=== PATIENT | female | born 1940 | race African-American/Black ===

== ENCOUNTER → 2018-10-28 | Outpatient (CLI) | payer MEDICARE, OTHER ==
--- NOTE | 2018-10-28 14:20 | RADIOLOGY REPORT (SQ) ---
EXAM DESCRIPTION: CT ABD/PELVIS ORAL ONLY COMPLETED DATE/TIME: 10/28/2018 1:18 pm REASON FOR STUDY: ABD PAIN (R10.9), DIARRHEA (R19.7) R19.7 DIARRHEA, UNSPECIFIED R10.9 UNSPECIFIED ABDOMINAL PAIN COMPARISON: None. TECHNIQUE: CT scan of the abdomen and pelvis performed without intravenous contrast. Oral contrast was given. Images reviewed with lung, soft tissue, and bone windows. Reconstructed coronal and sagit kerline MPR images reviewed. All images stored on PACS. All CT scanners at this facility use dose modulation, iterative reconstruction, and/or weight based d osing when appropriate to reduce radiation dose to as low as reasonably achievable (ALARA). [facility]: Dose Right [facility]: CareDose [facility]: Dose Right [facility]: Teradose 4D [facility]: [employer] RADIATION DOSE: CT Rad equipment meets quality standard of care and radiation dose reduction techniq ues were employed. CTDIvol: 5.7 mGy. DLP: 273 mGy-cm.mGy. LIMITATIONS: None. FINDINGS: LOWER CHEST: No significant findings. No nodules or infiltrates. NON-CONTRASTED LIVER, SPLEEN, ADRENALS: Evaluation limited by lack of IV contrast. No identified sign ificant masses. PANCREAS: No masses. No peripancreatic inflammatory changes. GALLBLADDER: Surgically absent. RIGHT KIDNEY AND URETER: No suspicious masses. Assessment limited by lack of IV contrast. No signif icant calcifications. No hydronephrosis or hydroureter. LEFT KIDNEY AND URETER: No suspicious masses. Assessment limited by lack of IV contrast. Nonobstruc ting intrarenal calculus. No hydronephrosis or hydroureter. AORTA AND RETROPERITONEUM: No aneurysm. No retroperitoneal masses or adenopathy. BOWEL AND PERITONEAL CAVITY: No obvious masses or inflammatory changes. No free fluid. APPENDIX: Not identified. PELVIS, BLADDER, AND ABDOMINAL WALL:No abnormal masses. No free fluid. Bladder normal. BONES: Subcortical cysts are present in each acetabulum. OTHER: No other significant finding. IMPRESSION: 1. No acute finding in the abdomen pelvis. 2. Mild degenerative joint changes in the hips. COMMENT: Quality ID # [id number]: Final reports with documentation of one or more dose reduction techniques (e.g., Automated exposure control, adjustment of the mA and/or kV according to patient size, use of iterative reconstruction technique) TECHNICAL DOCUMENTATION: JOB ID: [id number] [employer]- All Rights Reserved Reading location - IP/workstation name: [email or web address]
== END ==
LOC: RAD 12:47
PROVIDERS: ATTEND Surgery
DX: R10.9 Unspecified abdominal pain (principal); R19.7 Diarrhea, unspecified
CPT/HCPCS: 74176

== ENCOUNTER → 2018-11-08 | Outpatient (CLI) | payer MEDICARE, OTHER ==
--- NOTE | 2018-11-09 17:18 | RADIOLOGY REPORT (SQ) ---
EXAM DESCRIPTION: MRI ABDOMEN WITHOUT COMPLETED DATE/TIME: 11/08/2018 8:51 pm REASON FOR STUDY: R19.7 DIARRHEA, UNSPECIFIED R19.7 DIARRHEA, UNSPECIFIED COMPARISON: CT. TECHNIQUE: Multiplanar multisequence imaging performed without contrast including sagittal, axial an d coronal T2, axial T1, axial gradient fat sat T1, axial, sagittal and coronal fat sat T1 post contra st. CONTRAST TYPE AND DOSE: Contraindicated. RENAL FUNCTION: GFR 23 LIMITATIONS: None. FINDINGS: LIVER: Normal size. No masses. No dilated ducts. CBD normal. SPLEEN: Normal size. No focal lesions. PANCREAS: No masses. No adjacent inflammation or peripancreatic fluid collections. Pancreatic duct no t dilated. GALLBLADDER: Surgically absent. ADRENAL GLANDS: No significant masses or asymmetry. RIGHT KIDNEY AND URETER: Simple cysts. No suspicious findings. LEFT KIDNEY AND URETER: Simple cysts. No suspicious findings. AORTA AND VESSELS: No aneurysm. No dissection. Renal arteries, SMA, celiac without stenosis. RETROPERITONEUM: No retroperitoneal adenopathy, hemorrhage or masses. BOWEL: No visualized masses. No inflammation. No significant dilatation. ABDOMINAL WALL AND PERITONEUM: Breast prostheses. BONES: No acute or significant findings. OTHER: No other significant finding. IMPRESSION: No significant finding. Cholecystectomy. The pancreas is unremarkable. TECHNICAL DOCUMENTATION: JOB ID: [id number] [employer]- All Rights Reserved Reading location - IP/workstation name: [email or web address]
== END ==
LOC: RAD 11-01 19:27
PROVIDERS: ATTEND Surgery
DX: R19.7 Diarrhea, unspecified (principal)
CPT/HCPCS: 74181; 82565

== ENCOUNTER 2019-01-21 07:44 | Day surgery (SDC) | payer MEDICARE, OTHER ==
[~2019-01-21 07:44] MED LIST: DIPHENHYDRAMINE HCL 50 MG/ML VIAL ONE; EPINEPHRINE INJ 1 MG/10 ML DISP.SYRIN ONE; FLUMAZENIL INJ 0.5 MG/5 ML VIAL ONE; GLUCAGON,HUMAN RECOMB 1 MG INJ ONE; NALOXONE HCL INJ/PF 0.4 MG/1 ML SDV ONE; ONDANSETRON HCL INJ/PF 4 MG/2 ML SDV ONE
[2019-01-21] MEDS: MIDAZOLAM 2 MG/2 ML INJ ONE ×2 (09:00→09:17)
[2019-01-21] MEDS: FENTANYL CITRATE INJ/PF 100 MCG/2 ML AMPUL ONE ×2 (09:03→09:28)
--- NOTE | 2019-01-21 09:56 | Operative Report ---
Nonrecallable Operative Report DATE OF SURGERY: 01/21/19 PREOPERATIVE DIAGNOSIS: screening colonoscopy. dirrhea POSTOPERATIVE DIAGNOSIS: screening colonosocpy, dirrhea OPERATION: colonoscopy, esophagogastroduodenoscopy SURGEON: ZEESHAN VALDES ANESTHESIA: Moderate Sedation TISSUE REMOVED OR ALTERED: none COMPLICATIONS: none ESTIMATED BLOOD LOSS: 0 INTRAOPERATIVE FINDINGS: diverticulosis PROCEDURE: see dictation
--- NOTE | 2019-01-21 09:57 | Discharge Summary ---
Discharge Summary (SDC) - Discharge Final Diagnosis: diverticulosis Date of Surgery: 01/21/19 Condition: Good Treatment or Instructions: resume previous diet Discharge Diet: As Tolerated Discharge Activity: Activity As Tolerated Report the Following to Your Physician Immediately: Increase in Pain - needs f/u with me in 6-8 weeks
[2019-01-21 10:46] VITALS: BP 158/86
--- NOTE | 2019-01-21 12:19 | OPERATIVE REPORT E ---
Operative Report NAME: CHAYA SPRINGER : 1940 AGE: 78Y DATE OF SURGERY: 01/21/2019 ROOM: PREOPERATIVE DIAGNOSES: 1. Chronic diarrhea. 2. Screening colonoscopy. POSTOPERATIVE DIAGNOSES: 1. Chronic diarrhea. 2. Screening colonoscopy. OPERATIVE PROCEDURE: 1. Esophagogastroduodenoscopy. 2. Screening colonoscopy. SURGEON: ZEESHAN VALDES M.D. INDICATIONS FOR PROCEDURE: This is a 78-year-old female who has had a long history of chronic diarrhea who has seen me in the office multiple times as well as GI physicians. She is being managed with nutritional supplementation and antidiarrheals. She has had previous colonoscopies, which were reported as normal and her last one was 5 to 8 years ago and requests a repeat. In addition to that because of the diarrhea we will look also at her stomach. PROCEDURE: Patient brought to the endoscopy suite awake, alert, in stable condition. After appropriate timeout she was placed in the left lateral decubitus position. After appropriate anesthetic of the posterior pharynx with Hurricaine spray and IV sedation with fentanyl and versed, the Olympus gastroscope was utilized for the upper endoscopy. It was passed easily into the posterior pharynx down the esophagus into the body of the stomach. We were easily able to identify the body, antrum, fundus of the stomach, and then the pylorus. The pylorus was intubated and we visualized the duodenum. As we withdrew the scope we took note of all the anatomy. The duodenum appeared to be normal, so we passed back through the pylorus. That appeared to be somewhat patulous, but no evidence of any pathology or mucosal disease. We then retroflexed the scope and noted a small hiatal hernia. The body of the stomach appeared to be somewhat mildly atrophic, but no evidence of any mucosal-based abnormalities. We withdrew the scope. The distal esophagus appeared to be normal without any evidence of esophagitis. Then the scope was pulled back through the distal and proximal esophagus and all appeared to be normal. The scope was removed. The patient was then repositioned for the colonoscopy. Using the Olympus colonoscope it was passed into the rectum. We traversed the sigmoid colon, descending colon up to the splenic flexure. The transverse colon was visualized as well as the hepatic flexure and the cecum. The appendiceal orifice was identified as well as the cecum. That appeared to be normal without any evidence of polyps. As we withdrew the scope we visualized the ascending colon and the hepatic flexure appeared to be normal without any mucosal abnormalities. We visualized the transverse colon, the splenic flexure, and did note some mid descending colon diverticulosis, but no other polyps could be identified. As we pulled the scope back down through the sigmoid colon that appeared to be normal without strictures or polyps. We then retroflexed the scope in the cecum and identified grade 2 hemorrhoids, but no other evidence of mucosal disease. The scope was then re-straightened and removed. IMPRESSION: Colonoscopy showing only mild diverticulosis and grade 2 hemorrhoids. The patient tolerated the procedure well and will be discharged home. She will be given a follow up in 6 to 8 weeks with me to further assess and treat her diarrhea. DICTATING PHYSICIAN: ZEESHAN VALDES M.D. [id number] PHY#: [id number] ID: [id number] JOB#: [id number] ACCT: [id number] cc:ZEESHAN VALDES M.D. >
== END 2019-01-21 10:55 | disposition home or self-care (01) ==
LOC: END 07:44
PROVIDERS: ATTEND Surgery
DX: K52.9 Noninfective gastroenteritis and colitis, unspecified (principal); K64.9 Unspecified hemorrhoids; R10.13 Epigastric pain; K29.70 Gastritis, unspecified, without bleeding; M32.9 Systemic lupus erythematosus, unspecified; F17.210 Nicotine dependence, cigarettes, uncomplicated; M79.7 Fibromyalgia; Z79.899 Other long term (current) drug therapy; Z01.818 Encounter for other preprocedural examination; Z79.890 Hormone replacement therapy; K80.10 Calculus of gallbladder with chronic cholecystitis without obstruction
CPT/HCPCS: 43235; 45378; J2250; J3010; J0171; J1200; J1610; J2310; J2405; J3490